=== PATIENT | female | born 1980 | race African-American/Black ===

== ENCOUNTER 2016-06-27 05:48 | Emergency (ER) | payer OTHER ==
[2016-06-27 06:00] VITALS: BMI 32.5
--- NOTE | 2016-06-27 06:05 | DR.GENAD ---
HPI - PCP Primary Care Physician: LIZ - Complaint/Symptoms Chief Complaint:: HOT FLASHES, DIZZY, WEAK, FEELS LIKE I AM GOING TO PASS OUT. C/C/C LAST COUPLE OF WEEKS Self Treatment fo Chief Complaint: [place], - Source History Provided: Patient - Mode of Arrival Mode of Arrival: Wheelchair - Timing Onset of Chief Complaint: 06/26/16 PMH - PMH Past Medical History: Yes Past Medical History Comment: TUBAL Past Surgical History: Yes Past Surgical History Comment: OVARIAN CYSTECTOMY - Family History History of Family Medical Conditions: Yes Family Medical History: Hypertension - Social History Does patient currently use any type of tobacco product: No Have you used tobacco products in the last 12 months: No Type of Tobacco Use: None Does any household member use tobacco: No Alcohol Use: None Do you use any recreational Drugs:: No Lives With: Spouse Lives Where: Home - infectious screening Have you traveled outside the country in the last 6 months?: No Isolation: Standard ROS - Review of Systems Constitutional: No Symptoms Reported Eyes: No Symptoms Reported ENTM: No Symptoms Reported Respiratoy: No Symptoms Reported Cardiovascular: No Symptoms Reported Gastrointestinal/Abdominal: No Symptoms Reported Genitourinary: No Symptoms Reported Neurological: No Symptoms Reported Musculoskeletal: No Symptoms Reported Integumentary: No Symptoms Reported Hematologic/Lymphatic: No Symptoms Reported Endocrine: No Symptoms Reported Psychiatric: No Symptoms Reported All Other Systems: Reviewed and Negative PE - Vital Signs Vitals: Temperature 97.8 F Pulse Rate [Apical] 88 Pulse Rate 77 Respiratory Rate 16 Blood Pressure [Left Arm] 120/74 Blood Pressure 119/78 O2 Sat by Pulse Oximetry 99 - General Limitations: No Limitations General Appearance: Alert, In No Apparent Distress - Head Head Exam: Normal Inspection, Atraumatic - Eyes Eye exam: Normal Appearance, PERRL, EOMI - ENT ENT Exam: Normal Exam External Ear Exam: Normal External Inspection TM/Canal Exam: Bilateral Normal Nose Exam: Normal Nose Exam Mouth Exam: Normal Inspection Throat Exam: Normal Inspection - Neck Neck Exam: Normal Inspection, Full ROM, Trachea Midline - Chest Chest Inspection: Normal Inspection - Respiratory Respiratory Exam: Normal Lung Sounds Bilat Respiratory Exam: Bilateral Clear to Auscultation - Cardiovascular Cardiovascular Exam: Regular Rate, Normal Rhythm - Abdominal Exam Abdominal Exam: Normal Inspection, Normal Bowel Sounds Abdominal Tenderness: negative: RUQ, RLQ, LUQ, LLQ, Epigastrium, Suprapubic, Diffuse, Mild, Moderate, Severe, Other - Extremities Extremities Exam: Normal Inspection, Full ROM - Back Back Exam: Normal Inspection - Neurologic Neurological Exam: Alert, Oriented X3 - Skin Skin Exam: Warm, Dry, Intact ROR - Labs Reviewed Result Diagrams: 06/27/16 06:09 06/27/16 06:09 Laboratory: WBC 5.7 X10^3/uL (3.6-10.0) 06/27/16 06:09 RBC 4.35 X10^6/uL (3.5-5.4) 06/27/16 06:09 Hgb 12.0 g/dL (12.0-16.0) 06/27/16 06:09 Hct 36.2 % (36.0-47.0) 06/27/16 06:09 MCV 83.3 fL (80.0-100.0) 06/27/16 06:09 MCH 27.6 pg (27.0-34.0) 06/27/16 06:09 MCHC 33.2 g/dL (33.0-35.0) 06/27/16 06:09 RDW 12.6 % (11.6-16.5) 06/27/16 06:09 Plt Count 175 X10^3/uL (150.0-450.0) 06/27/16 06:09 MPV 8.9 fL (7.4-11.0) 06/27/16 06:09 Neut % 55.9 % (42.0-75.0) 06/27/16 06:09 Lymph % 32.4 % (21.0-51.0) 06/27/16 06:09 [place] % 6.2 % (0.0-13.0) 06/27/16 06:09 Eos % 4.7 % (0.9-2.9) H 06/27/16 06:09 Baso % 0.8 % (0.2-1.0) 06/27/16 06:09 Neut # 3.2 x10^3/uL (2.2-4.8) 06/27/16 06:09 Lymph # 1.9 X10^3/uL (1.3-2.9) 06/27/16 06:09 [place] # 0.4 x10^3/uL (0.3-0.8) 06/27/16 06:09 Eos # 0.3 x10^3/uL (0.0-0.2) H 06/27/16 06:09 Baso # 0.0 X10^3/uL (0.0-0.1) 06/27/16 06:09 Absolute Nucleated RBC 0.0 /100WBC 06/27/16 06:09 Sodium 141 mmol/L (136-145) 06/27/16 06:09 Corrected Sodium TNP 06/27/16 06:09 Potassium 3.7 mmol/L (3.5-5.1) 06/27/16 06:09 Chloride 104 mmol/L (98-107) 06/27/16 06:09 Carbon Dioxide 28.1 mmol/L (21-32) 06/27/16 06:09 BUN 9 mg/dL (7-18) 06/27/16 06:09 Creatinine 0.86 mg/dL (0.55-1.02) 06/27/16 06:09 Est GFR (MDRD) Af Amer > 60 (>60) 06/27/16 06:09 Est GFR (MDRD) Non-Af > 60 (>60) 06/27/16 06:09 Glucose 110 mg/dL (65-99) H 06/27/16 06:09 Calcium 8.3 mg/dL (8.5-10.1) L 06/27/16 06:09 C-Reactive Protein 3.10 mg/L (0-3.0) H 06/27/16 06:09 Streptococcus Screen Negative (NEGATIVE) 06/27/16 06:09 - XRAY XRAY Interpreted by: Radiologist (Chest: no acute cardiopulmonary disease) - Diagnosis Discharge Problem: Nausea - Discharge Plan Condition: Stable - Follow ups/Referrals Follow ups/Referrals: LAUREN HILL [Primary Care Provider] - 3 days - Instructions
[2016-06-27 06:23] LABS: BASOPHILS % (AUTO) 0.8 % (0.2-1.0); EOSINOPHILS # (AUTO) 0.3 x10^3/uL (0.0-0.2); EOSINOPHILS % (AUTO) 4.7 % (0.9-2.9); HEMATOCRIT 36.2 % (36.0-47.0); LYMPHOCYTES # (AUTO) 1.9 X10^3/uL (1.3-2.9); LYMPHOCYTES % (AUTO) 32.4 % (21.0-51.0); MEAN CORPUSCULAR HEMOGLOBIN 27.6 pg (27.0-34.0); MEAN CORPUSCULAR HGB CONC 33.2 g/dL (33.0-35.0); MEAN CORPUSCULAR VOLUME 83.3 fL (80.0-100.0); MEAN PLATELET VOLUME 8.9 fL (7.4-11.0); MONOCYTES # (AUTO) 0.4 x10^3/uL (0.3-0.8); MONOCYTES % (AUTO) 6.2 % (0.0-13.0); NEUTROPHILS # (AUTO) 3.2 x10^3/uL (2.2-4.8); NEUTROPHILS % (AUTO) 55.9 % (42.0-75.0); PLATELET COUNT 175 X10^3/uL (150.0-450.0); RED BLOOD COUNT 4.35 X10^6/uL (3.5-5.4); RED CELL DISTRIBUTION WIDTH 12.6 % (11.6-16.5); WHITE BLOOD COUNT 5.7 X10^3/uL (3.6-10.0)
[2016-06-27] MEDS ORDERED: ZOFRAN TAB 4 MG PO ONE (06:44)
--- NOTE | 2016-06-27 06:49 | RAD ---
EXAM: Chest X-ray INDICATION: Dizziness COMPARISION: No prior TECHNIQUE: PA and Lat, 2 view FINDINGS: The lungs are clear and the lung volumes are within normal limits. No pleural effusion or pneumothor ax. The cardiac silhouette and mediastinum are normal. The regional skeleton is intact. IMPRESSION: Normal Chest X-Ray Reported By:
[2016-06-27] MEDS ORDERED: ZOFRAN TAB 4 MG ONE (06:51)
[2016-06-27 06:57] VITALS: BP 120/74
[2016-06-27 07:07] LABS: BLOOD UREA NITROGEN 9 mg/dL (7-18); CALCIUM 8.3 mg/dL (8.5-10.1); CARBON DIOXIDE 28.1 mmol/L (21-32); CHLORIDE 104 mmol/L (98-107); CREATININE 0.86 mg/dL (0.55-1.02); GLUCOSE 110 mg/dL (65-99); SODIUM 141 mmol/L (136-145); eGFR BLACK RACES > 60 (>60); eGFR NON BLACK RACES > 60 (>60)
== END 2016-06-27 07:44 | disposition home or self-care (01) ==
LOC: ER 05:48
DX: R42 Dizziness and giddiness (principal)
CPT/HCPCS: 36415; 71020; 80048; 85025; 86140; 87070; 87880; 99282; S0181

== ENCOUNTER 2016-08-17 11:49 | Emergency (ER) | payer OTHER ==
[2016-08-17 11:54] VITALS: BP 123/77; BMI 30.9
--- NOTE | 2016-08-17 12:27 | DR.GENAD ---
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 She is concerned that she might have scabes. Patient denies any history of seborrhea or dermatitis Chief Complaint:: patient stated she woke up this morning with a rash. - Source History Provided: Patient - Mode of Arrival Mode of Arrival: Ambulatory - Timing Onset of Chief Complaint: 08/17/16 PMH - PMH Past Medical History: No Past Surgical History: Yes - Family History History of Family Medical Conditions: Yes Family Medical History: Hypertension - Social History Does patient currently use any type of tobacco product: No Have you used tobacco products in the last 12 months: No Type of Tobacco Use: None Does any household member use tobacco: No Alcohol Use: None Do you use any recreational Drugs:: No Lives With: Family Lives Where: Home - infectious screening In the last 2 months have you had wt loss of >10#?: NO Have you had fever, night sweats or hemotysis?: No Have you traveled outside the country in the last 6 months?: No Isolation: Standard ROS - Review of Systems Constitutional: No Symptoms Reported Eyes: No Symptoms Reported ENTM: No Symptoms Reported Respiratoy: No Symptoms Reported Cardiovascular: No Symptoms Reported Gastrointestinal/Abdominal: No Symptoms Reported Genitourinary: No Symptoms Reported Neurological: No Symptoms Reported Musculoskeletal: No Symptoms Reported Integumentary: Itching (dry) Hematologic/Lymphatic: No Symptoms Reported Endocrine: No Symptoms Reported Psychiatric: No Symptoms Reported All Other Systems: Reviewed and Negative PE - Vital Signs Vitals: Temperature 98.4 F Pulse Rate 95 Respiratory Rate 16 Blood Pressure [Left Arm] 120/74 Blood Pressure 123/77 O2 Sat by Pulse Oximetry 100 - General Limitations: No Limitations General Appearance: Alert, In No Apparent Distress - Head Head Exam: Normal Inspection, Atraumatic - Eyes Eye exam: Normal Appearance, PERRL, EOMI - ENT ENT Exam: Normal Exam External Ear Exam: Normal External Inspection TM/Canal Exam: Bilateral Normal Nose Exam: Normal Nose Exam Mouth Exam: Normal Inspection Throat Exam: Normal Inspection - Neck Neck Exam: Normal Inspection - Chest Chest Inspection: Normal Inspection - Respiratory Respiratory Exam: Normal Lung Sounds Bilat Respiratory Exam: Bilateral Clear to Auscultation - Cardiovascular Cardiovascular Exam: Regular Rate, Normal Rhythm - Abdominal Exam Abdominal Exam: Normal Inspection Abdominal Tenderness: negative: RUQ, RLQ, LUQ, LLQ, Epigastrium, Suprapubic, Diffuse, Mild, Moderate, Severe, Other - Extremities Extremities Exam: Normal Inspection, Full ROM - Back Back Exam: Normal Inspection, Full ROM - Neurologic Neurological Exam: Alert, Oriented X3, CN II-XII Intact - Psychiatric Psychiatric Exam: Normal Affect, Normal Mood - Skin Skin Exam: Warm, Dry, Intact. negative: Normal Color, Rash, Cyanosis, Diaphoresis, Erythema - Diagnosis Discharge Problem: Pruritic dermatitis - Discharge Plan Condition: Stable - Follow ups/Referrals Follow ups/Referrals: LAUREN HILL [Primary Care Provider] - 3 days - Instructions
[2016-08-17] MEDS ORDERED: BENADRYL INJ 50 MG VIAL IM ONE (12:28)
[2016-08-17] MEDS ORDERED: BENADRYL INJ 50 MG VIAL ONE (12:33)
== END 2016-08-17 12:44 | disposition home or self-care (01) ==
LOC: ER 12:10
DX: L30.8 Other specified dermatitis (principal)
CPT/HCPCS: 99281; 99282; J1200